=== PATIENT | male | born 1945 | race African-American/Black ===

== ENCOUNTER 2024-09-12 12:46 | Outpatient (OUT) | payer MEDICARE, SELFPAY ==
--- NOTE | 2024-09-12 12:56 | CA_ITS ---
Patient Name Site Name IRINEO GURROLA [facility] Account No Medical Record Number Age Sex Date Time [id number] [facility]:[id number] M 09/12/2024 12:58 At the Request Of UBALDO WATSON ECHOCARDIOGRAM REPORT PROCEDURE: CA ECHO DOPPLER COMPLETE INDICATIONS: Abnormal EKG COMPARISON: None. DESCRIPTION: COMPLETE ECHOCARDIOGRAM Real-time transthoracic echocardiography with 2D, M-mode, spectral and color flow Doppler performed. QUALITY: Technical quality was good. LEFT VENTRICLE: Normal chamber size. Mild concentric left ventricular hypertrophy. LV EF: Lower limits of normal left ventricular ejection fraction, (50-55%). DIASTOLIC: Grade II diastolic dysfunction. ATRIAL SEPTUM: LEFT ATRIUM: Moderate dilatation. RIGHT ATRIUM: Moderate dilatation. RIGHT VENTRICLE: Normal chamber size. Normal right ventricular systolic function. TRICUSPID VALVE: Normal mobility and thickness. No stenosis with mild to moderate regurgitation. Moderate pulmonary hypertension. RVSP 49 mmHg. MITRAL VALVE: Normal mobility and thickness. No evidence of mitral valve stenosis. There is no mitral annular calcification. Mild mitral regurgitation. AORTIC VALVE: Normal trileaflet appearance. Mildly calcified aortic valve. Normal leaflet mobility. No evidence of aortic valve stenosis. No aortic regurgitation. AORTIC ROOT: Moderately dilated, measuring 4.2 cm. The ascending aorta is borderline dilated at 3.7 cm. PULMONIC VALVE: Normal thickness and mobility. No stenosis. Mild regurgitation. PERICARDIUM: No evidence of pericardial effusion. IVC: Collapses with inspirations. Mildly dilated measuring 2.2cm. PLEURA: CONCLUSION: 1. Mild concentric ventricular hypertrophy with low normal systolic function. LVEF is estimated at 50 to 55%. 2. Normal right ventricular size and systolic function. 3. Grade 2 diastolic dysfunction. 4. Moderate biatrial dilatation. 5. Mild mitral regurgitation. 6. Mild to moderate tricuspid regurgitation. 7. Moderately elevated right-sided pressures. RVSP is 49 mmHg. 8. 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 Adult Echocardiography Procedure Report Left Ventricle LVEDD (3.7 - 5.6 cm): 4.85 cm LVESD (2.2 - 4.0 cm): 3.75 cm LVIVS thickness (0.6 - 1.2 cm): 1.41 cm LVPW thickness (0.5 - 1.0 cm): 1.25 cm e': 0.08 m/s E - e': 13.91 LVOT Max Gradient: 3.57 mm[Hg], 3.46 mm[Hg] LVOT Area (cm2): 0.94 m/s Peak Velocity (LVOT): 0.95 m/s, 0.93 m/s Mean Velocity (LVOT): 0.65 m/s LVOT Diameter 2.03 cm Left Ventricular Ejection Fraction: 55.23 % Left Atrium LA Volume Index (2D A2C): 49.16 ml/m2 Left Atrium Systolic Dimension: 4.05 cm Mitral Valve MV E to A Ratio: 1.08 Mitral Valve A-Wave Peak Velocity: 1.04 m/s Mitral Valve E-Wave Peak Velocity: 1.12 m/s Right Ventricle RV Internal Diastolic Dimension: 3.86 cm Aorta AO Root Diam: 4.37 cm Ascending Ao Diam: 3.70 cm Aortic Valve AoV Area (Peak Feng): 2.41 cm2, 2.43 cm2, 2.39 cm2 AoV Area (VTI): 2.36 cm2, 2.29 cm2, 2.43 cm2 Peak Velocity(Antegrade Flow): 1.26 m/s, 1.26 m/s Peak Gradient(Antegrade Flow): 6.31 mm[Hg], 6.31 mm[Hg] Mean Velocity(Antegrade Flow): 0.92 m/s, 0.89 m/s Mean Gradient(Antegrade Flow): 3.77 mm[Hg], 3.56 mm[Hg] Velocity Time Integral: 27.90 cm, 27.32 cm Tricuspid Valve Peak Velocity (Regurgitant Flow): 2.85 m/s, 3.20 m/s, 3.22 m/s, 3.09 m/s Pulmonic Valve Peak Velocity: 1.05 m/s Peak Gradient: 3.54 mm[Hg], 5.32 mm[Hg] Right Atrium Right Atrium Systolic Pressure: 71.48 ml, 71.48 ml Dictated by: Dhruv Madera M.D. on 09/12/2024 at 15:04 Approved by: Dhruv Madera M.D. on 09/12/2024 at 15:08
== END 2024-09-12 12:47 | disposition home or self-care (01) ==
LOC: CARD 12:46
PROVIDERS: PCP Family Medicine; Visit Provider Internal Medicine Interventional Cardiology
DX: R94.31 Abnormal electrocardiogram [ECG] [EKG] (principal)
CPT/HCPCS: 93306; 93356